=== PATIENT | female | born 1965 | race Caucasian/White ===

== ENCOUNTER → 2017-07-21 | Outpatient (CLI) | payer OTHER ==
[2017-07-21 11:21] LABS: BILIRUBIN, URINE NEG (NEG); BLOOD, URINE SMALL (NEG); GLUCOSE,URINE NEG (NEG); KETONE, URINE NEG (NEG); NITRITE,URINE NEG (NEG); SQUAMOUS EPITHELIAL CELL URINE <1 /hpf (0-5); URINE COLOR YELLOW (YELLW/STRAW); URINE LEUKOCYTE ESTERASE NEG (NEG)
[2017-07-21 11:24] LABS: AUTOMATED NEUTROPHIL # 2.1 TH/MM3 (1.8-7.7); BASOPHIL # 0.1 TH/MM3 (0-0.2); BASOPHIL % 1.4 % (0.0-2.0); EOSINOPHIL # 0.3 TH/MM3 (0-0.4); EOSINOPHIL % 4.5 % (0.0-4.0); HEMATOCRIT 40.3 % (35.0-46.0); HEMOGLOBIN 14.1 GM/DL (11.6-15.3); LYMPH % 48.6 % (9.0-44.0); LYMPHOCYTE # 2.8 TH/MM3 (1.0-4.8); MEAN CELL VOLUME 88.5 FL (80.0-100.0); MEAN CORPUSCULAR HEMOGLOBIN 30.9 PG (27.0-34.0); MEAN PLATELET VOLUME 7.5 FL (7.0-11.0); MONO % 8.3 % (0.0-8.0); MONOCYTE # 0.5 TH/MM3 (0-0.9); NEUT % 37.2 % (16.0-70.0); PLATELET COUNT 287 TH/MM3 (150-450); RED BLOOD COUNT 4.55 MIL/MM3 (4.00-5.30); RED CELL DISTRIBUTION WIDTH 13.4 % (11.6-17.2); WHITE BLOOD COUNT 5.7 TH/MM3 (4.0-11.0)
[2017-07-21 11:46] LABS: ALBUMIN 3.9 GM/DL (3.4-5.0); ALT (GPT) 39 U/L (10-53); AST (GOT) 25 U/L (15-37); BLOOD UREA NITROGEN 14 MG/DL (7-18); CALCIUM 8.7 MG/DL (8.5-10.1); CHLORIDE 105 MEQ/L (98-107); GLOMERULAR FILTRATION RATE 104 ML/MIN (>89); GLUCOSE,FASTING 75 MG/DL (74-99); SODIUM (NA) 141 MEQ/L (136-145)
[2017-07-21 11:48] LABS: ALKALINE PHOSPHATASE 98 U/L (45-117); TOTAL BILIRUBIN ADULT 0.3 MG/DL (0.2-1.0); TOTAL PROTEIN 8.1 GM/DL (6.4-8.2)
--- NOTE | 2017-07-21 14:34 | EKG ---
Date Performed: 07/21/2017 Time Performed: 10:51:59 PTAGE: 52 years EKG: Sinus rhythm LOW QRS VOLTAGE IN PRECORDIAL LEADS BORDERLINE ECG NO PREVIOUS TRACING DOCTOR: Dc Garcia Interpretating Date/Time 07/21/2017 14:29:28
== END ==
LOC: CPRE 10:35
PROVIDERS: ATTEND Obstetrics & Gynecology Gynecology
DX: Z01.812 Encounter for preprocedural laboratory examination (principal); Z01.810 Encounter for preprocedural cardiovascular examination; N81.11 Cystocele, midline; N81.6 Rectocele
CPT/HCPCS: 36415; 80053; 81001; 85025; 93005

== ENCOUNTER → 2017-07-27 | Day surgery (SDC) | payer OTHER ==
--- NOTE | 2017-07-21 12:49 | MH ---
cc: SAHARA DURANT MD DATE OF ADMISSION 07/27/2017 DATE OF 1965 REASON FOR ADMISSION Anterior/posterior repair. HISTORY OF PRESENT ILLNESS The patient is a 52-year-old female 5, para 5. She has issues with pelvic organ prolapse. 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 She has had five children, largest baby 8 pounds. She has noticed increasing pelvic pressure and discomfort over the last two years. She has no other significant medical history. She does not speak much Colombian and uses her daughter as a tobacco roller. PAST MEDICAL HISTORY The patient's medical history is negative for heart, lung, liver disease, hypertension, diabetes or stroke. PAST SURGICAL HISTORY None OBSTETRICAL HISTORY Five vaginal deliveries. GYNECOLOGIC HISTORY No STD's or abnormal Pap smears. Last period was approximately one year ago. ALLERGIES None FAMILY HISTORY Noncontributory SOCIAL HISTORY Does not smokes, use alcohol or drugs. She is and has a good social support. 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 REVIEW OF SYSTEMS As above. No chest pain, orthopnea, PND. No nausea, fever, or chills. No vaginal bleed or discharge. Pelvic pressure is her main complaint. PHYSICAL EXAM On exam, she is afebrile, vital signs stable. Blood pressure 120/70, her height is 5 foot 4 inches, weight 162, BMI is 28. GENERAL: The patient is alert and oriented in no acute distress. No sign of cognitive function or depression. HEENT: Within normal limits. NECK: Supple. No JVD. CHEST: Clear. HEART: Regular rate and rhythm. ABDOMEN: Soft and non tender. No hepatosplenomegaly. No CVA tenderness. PELVIC: Exam will be detailed under anesthesia, but in the office we note a Pop-Q score Aa is +1, Ap is 0. Point C is -6, genital hiatus is 8, perineal body is 4, total vaginal length 10. The remainder of the exam will be detailed under general anesthesia. EXTREMITIES: Normal. Skin without rashes. NEUROLOGIC: Nonfocal. No DVT signs. ASSESSMENT Patient with stage II pelvic organ prolapse anterior/posterior compartments. 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 At this point, she expressed understanding with the plan. We will use DVT prophylaxis with sequential compression device and antibiotic prophylaxis with Ancef 2 grams IV. MD MARII Abraham/RICK /12:15 PM /12:26 PM
[~2017-07-27] VITALS: Ht 160 cm; Wt 73.5 kg
[~2017-07-27] MED LIST: ACETAMINOPHEN 1000 MG/100 ML 0 ML IV ONE; ACETAMINOPHEN 1000 MG/100 ML 100 ML IV ONE; CHLORHEXIDINE GLUCONATE 2 % 1 PACK (2 CLOTHS) TOPICAL PRN; DEXAMETHASONE SOD PHOS 4 MG/ML VIAL IV ONE; DEXMEDETOMIDINE HCL 200 MCG/2 ML VIAL ONE; DO NOT ADM ANY ANTICOAGULANT DRUGS PRN; ESTROGENS CONJUGATED VAG CREA 15 APPL/30 GM TUBE ONE; FLUORESCEIN SOD 10% SOLN 500 MG/5 ML AMP ONE; KETOROLAC TROMETHAMINE 30 MG/ML (IVP) VIAL IV PUSH ONE; KETOROLAC TROMETHAMINE 30 MG/ML (IVP) VIAL IV PUSH PRN; LACTATED RINGER'S 1000 ML INJ 1,000 ML IV ONE; LACTATED RINGER'S 1000 ML IV PRN; LIDOCAINE 1%/EPINEPHrine 1:100,000 SOLN 50 ML VIAL ONE; LIDOCAINE HCL 1% PF 5 ML SYRINGE OTHER ONE; METOPROLOL TARTRATE 25 MG TAB PO PRN; MIDAZOLAM HCL 2 MG/2 ML VIAL ONE; ONDANSETRON HCL 4 MG/2 ML VIAL IV ONE; ONDANSETRON HCL 4 MG/2 ML VIAL IV PRN; PHENYLEPH/NS 1000 MCG/10 ML SYR IV ONE; POVIDONE IODINE 5% (ANTISEPSIS KIT) 4 APPLICATIONS EACH NARE PRN; PROPOFOL 200 MG/20 ML AMP IV ONE; SODIUM CHLORID 0.9% 500 ML IV PRN; ceFAZolin 2 GM PREMIX 50 ML IV SCH; ePHEDrine/NS 25 MG/5 ML SYRINGE IV ONE; traMADol HCL 50 MG TAB PO PRN
[2017-07-27 13:20] VITALS: BP 119/74; PULSE 74; RESP 18; TEMP 98.6; O2SAT 97
--- NOTE | 2017-07-27 13:46 | MP ---
cc: SAHARA DURANT MD DATE OF SURGERY 07/27/2017 PREOPERATIVE DIAGNOSIS 1. Midline cystocele, code N81.11. 2. Rectocele, code N81.6. POSTOPERATIVE DIAGNOSES 1. Midline cystocele, code N81.11. 2. Rectocele, code N81.6. 3. Uterine prolapse, code N81.2. PROCEDURE 1. Anterior and posterior repair with enterocele, code 73879. 2. Extraperitoneal colpopexy, code 35560. 3. Diagnostic cystoscopy, code [address] Durant. ANESTHESIA Laryngeal mask. ESTIMATED BLOOD LOSS 25 cc. URINE OUTPUT 200 cc. 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 FINDINGS External genitalia normal. POP-Q score: Aa is +1; Ap is +1; point C is -2; total vaginal length is 10; genital hiatus is 10; perineal body is 4. Following repair Aa is -3; Ap is -3; point C is -8; total vaginal length is 8; genital hiatus is 6; perineal body is 4. Cystoscopy shows normal trigone, good coaptation of urethra, ureteral orifices patent x2, dome and base of bladder normal. SPECIMENS None. COMPLICATIONS None. DISPOSITION To recovery room stable. COUNTS Needle and sponge counts correct. DRAINS Amaro catheter. PROPHYLAXIS DVT prophylaxis: Sequential compression device. Antibiotic prophylaxis: Ancef 2 grams IV. Timeout procedure and identification per protocol. SUMMARY OF INDICATION FOR PROCEDURE Patient with symptomatic pelvic organ prolapse. DETAILS OF PROCEDURE The patient was taken to the operating theatre, identified, prepped and draped in a fashion for planned procedure. She was in the dorsal lithotomy position with careful attention paid to placement of legs in the stirrups to avoid undue stress to sensitive neurovascular structures. Above findings noted. Neurovascular integrity documented. A Amaro catheter was placed. Methylene blue was instilled into the bladder The anterior compartment was the most significant area of prolapse. This area was infiltrated with epinephrine and lidocaine solution. A midline incision was made. Paravesical tissues were reflected from the mucosa without any spill of methylene blue. Anterior repair was performed in the standard fashion. The mucosa was trimmed and mucosa closed with a running Vicryl suture. Hemostatic matrix was used to obviate the need for packing. Cystoscopy with a 17-[place]ish bridge and a 70-degree scope noted good coaptation of urethra, ureteral orifices patent x2, dome and base of bladder normal. The patient received IV fluorescein and ureteral patency was easily documented. The anterior compartment was completed. There was still significant posterior compartment and some degree of uterine prolapse. The posterior repair was performed in the standard fashion by infiltrating with epinephrine and lidocaine solution. Make a midline incision up to the cervix, reflecting the pararectal tissues. An enterocele was encountered and managed in standard fashion with delayed absorbable suture. Plication of the levators was performed without complication. The vaginal mucosa was trimmed. Hemostatic matrix was used for added hemostasis. Had good result with good elevation of the uterus and resolution of the rectocele. The uterine suspension was extraperitoneal. The procedure was concluded. Suture line was inspected intact and hemostatic. Rectal exam was normal following repair. The patient went to the recovery room in stable condition. MD MARII Abraham/DIANE /12:18 PM /1:14 PM MTDRoxann
== END | disposition home or self-care (01) ==
LOC: HSDC 07:47
PROVIDERS: ATTEND Obstetrics & Gynecology Gynecology
DX: N81.2 Incomplete uterovaginal prolapse (principal); N81.6 Rectocele
CPT/HCPCS: 00840; 57265; 57282; J0131; J0690; J1100; J1885; J2250; J2370; J2405; J3010; J7120